=== PATIENT | female | born 1985 | race African-American/Black ===

== ENCOUNTER 2016-09-14 01:47 | Emergency (ER) | payer OTHER ==
[2016-09-14 05:15] VITALS: BP 123/89; PULSE 86; TEMP 98.3; BMI 18.4
[2016-09-14 05:31] LABS: URINE APPEARANCE SLCLOUDY; URINE BILIRUBIN NEGATIVE (NEGATIVE); URINE COLOR YELLOW; URINE GLUCOSE (UA) NEGATIVE (NEGATIVE); URINE KETONE NEGATIVE (NEGATIVE); URINE NITRITE POSITIVE (NEGATIVE); URINE PROTEIN NEGATIVE (NEGATIVE); URINE UROBILINOGEN NEGATIVE E.U./dl (0.2-1.0)
[2016-09-14 05:37] LABS: URINE BLOOD 3+ (NEGATIVE); URINE LEUK ESTERASE TRACE (NEGATIVE)
[2016-09-14 05:38] LABS: URINE BACTERIA RARE /hpf (NONE SEEN); URINE MUCUS RARE; URINE RBC 1 /hpf (0-3); URINE WBC 12 /hpf (3-5)
--- NOTE | 2016-09-14 06:43 | PDOC ---
History of Present Illness - General Chief Complaint: Vaginal Bleeding Stated Complaint: 12 WEEKS PRG, VAGINAL BLEEDING Time Seen by Provider: 09/14/16 02:07 History Source: Patient Exam Limitations: No Limitations - History of Present Illness Travel History: No Initial Comments: 09/14/16 06:39 I was asked by the charge nurse to see the patient since patient wanted to be seen secondary to urinary frequency and blood-tinged urine. Patient states is currently 12 weeks and had an ultrasound done last week which was normal and is to for her for first trimester screening later this week. Patient denies fever, chills, abdominal pain, abdominal distention, or diarrhea. Timing/Duration: reports: intermittent Quality: reports: mild Aggravating Factors: improves with: Voiding Alleviating Factors: improves with: None Past History - Past Medical History Allergies/Adverse Reactions: Allergies Allergy/AdvReac Type Severity Reaction Status Date / Time No Known Allergies Allergy Verified 09/14/16 05:16 Home Medications: Ambulatory Orders Amoxicillin - [Amoxicillin 500mg Capsule -] 500 mg PO TID 09/14/16 Ibuprofen [Motrin -] 400 mg PO QID PRN 09/14/16 Pnv#71/Iron/Folic Acid/Dha [Prena1 Annabelle Softgel] 1 each PO DAILY 09/14/16 - Psycho/Social/Smoking Cessation Hx Suicidal Ideation: No Smoking History: Unknown if ever smoked Patient Lives Alone: No Lives with/in: spouse/SO Review of Systems - Review of Systems Able to Perform ROS?: Yes Constitutional: No: Symptoms Reported ABD/GI: No: Symptoms Reported : Yes: Frequency, Hematuria Musculoskeletal: No: Symptoms Reported Integumentary: No: Symptoms Reported Neurological: No: Symptoms reported *Physical Exam - Vital Signs Last Vital Signs Temp Pulse Resp BP Pulse Ox 98.3 F 86 16 123/89 100 09/14/16 01:48 09/14/16 01:48 09/14/16 01:48 09/14/16 01:48 09/14/16 01:48 - Physical Exam General Appearance: Yes: Nourished, Appropriately Dressed. No: Apparent Distress Respiratory/Chest: positive: Lungs Clear, Normal Breath Sounds. negative: Respiratory Distress, Accessory Muscle Use Cardiovascular: positive: Regular Rhythm, Regular Rate. negative: Murmur Gastrointestinal/Abdominal: positive: Normal Bowel Sounds, Soft. negative: Tenderness Musculoskeletal: negative: CVA Tenderness Extremity: positive: Normal Capillary Refill. negative: Pedal Edema Integumentary: positive: Normal Color, Warm, Moist Neurologic: positive: Motor Strength 5/5 (ambulatory) ED Treatment Course - ADDITIONAL ORDERS Additional order review: Laboratory Results 09/14/16 05:26 Urine Color Yellow Urine Appearance Slcloudy Urine pH 5.0 Urine Protein Negative Urine Glucose (UA) Negative Urine Ketones Negative Urine Blood 3+ H Urine Nitrite Positive Urine Bilirubin Negative Urine Urobilinogen Negative Ur Leukocyte Esterase Trace H Urine RBC 1 Urine WBC 12 Ur Epithelial Cells Rare Urine Bacteria Rare Urine Mucus Rare Medical Decision Making - Medical Decision Making 09/14/16 06:42 The patient currently 12 weeks complaining of urinary frequency and blood-tinged urine. Patient on exam had no tenderness was ordered for urine analysis prior to my arrival. Urine does show UTI. Patient was added for a urine culture and will be switched to Macrobid. *DC/Admit/Observation/Transfer Diagnosis at time of Disposition: Urinary tract infection Qualifiers: Urinary tract infection type: acute cystitis Hematuria presence: with hematuria Qualified Code(s): N30.01 - Acute cystitis with hematuria - Discharge Dispostion Disposition: HOME Condition at time of disposition: Good - Referrals Referrals: Joanne Ureña [Primary Care Provider] - - Patient Instructions Printed Discharge Instructions: DI for Urinary Tract Infection (UTI) Additional Instructions: Please take antibiotics as prescribed until completed. 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 - Post Discharge Activity
[2016-09-14] MEDS ORDERED: NITROFURANTOIN MACROCRYSTAL 50 MG CAPSULE (FP) ONE (06:46)
[2016-09-14] MEDS ORDERED: NITROFURANTOIN MACROCRYSTAL 50 MG CAPSULE (FP) PO ONE (06:55)
== END 2016-09-14 06:59 | disposition home or self-care (01) ==
LOC: JER 01:47
DX: O26.891 Other specified pregnancy related conditions, first trimester (principal); N30.01 Acute cystitis with hematuria
CPT/HCPCS: 81003; 81015; 87086; 87186; 99281-25

== ENCOUNTER 2016-10-18 00:30 | Inpatient (IN) | payer OTHER ==
[2016-10-18] MEDS ORDERED: ACETAMINOPHEN 1000 MG/100 ML VIAL (NON FORMULARY) IVPB ONE (01:19)
--- NOTE | 2016-10-18 01:19 | PDOC ---
History of Present Illness - General History Source: Patient Exam Limitations: No Limitations - History of Present Illness Initial Comments: 10/18/16 01:38 The patient is a 31 year old female, A1, 16 -weeks , with a surgical history of three C sections, who presents to the ER with gradually worsening vaginal bleeding for one month and abdominal pain for several days. Patient states she has had vaginal bleeding since August 28, 2016. Since then, she had two sonograms, both reported that the bleeding was not near the baby. Patient states her last checkup with the UNION ORGANISER was three weeks ago, reporting that the baby was normal then. Patient reports recently visiting [facility] and was told she has a blood clot over the cervix. She says she recently has noticed clots and tissue in the vaginal blood. Patient reports that she has been wearing her sons diaper for the past three days due to the heavy vaginal bleeding. She reports having associated abdominal pain and states the pain is pushing down on her. On interview, patient had one episode of vomiting. Denies bleeding disorders Denies diarrhea Denies fever, chills, cough Denies dysuria, hematuria, frequency UNION ORGANISER: Dr. Kee <Val Thompson - Last Filed: 10/22/16 11:29> - General History Source: Patient Exam Limitations: No Limitations <Geri Reyes - Last Filed: 10/23/16 09:42> - General Chief Complaint: Vaginal Bleeding Stated Complaint: 16 WKS PREG, VAGINAL BLEEDING Time Seen by Provider: 10/18/16 00:38 Past History <Val Thompson - Last Filed: 10/22/16 11:29> - Psycho/Social/Smoking Cessation Hx Suicidal Ideation: No Smoking History: Never smoked Have you smoked in the past 12 months: No Information on smoking cessation initiated: No Hx Alcohol Use: No Drug/Substance Use Hx: No <Geri Reyes - Last Filed: 10/23/16 09:42> - Past Medical History Allergies/Adverse Reactions: Allergies Allergy/AdvReac Type Severity Reaction Status Date / Time No Known Allergies Allergy Verified 10/18/16 00:38 Home Medications: Ambulatory Orders Nitrofurantoin Monohyd/M-Cryst [Macrobid -] 100 mg PO BID #14 capsule 09/14/16 Pnv#71/Iron/Folic Acid/Dha [Prena1 Annabelle Softgel] 1 each PO DAILY 09/14/16 Acetaminophen [Tylenol .Regular Strength -] 325 mg PO Q4H PRN #0 tablet Ferrous Sulfate [Feosol] 325 mg PO BIDWM #60 tab 10/20/16 Ibuprofen [Motrin -] 200 mg PO Q6H PRN #0 tablet 10/20/16 Ibuprofen [Motrin -] 600 mg PO Q4H PRN #60 tablet 10/20/16 Vitamins (Sjr) - 1 tab PO DAILY #30 tablet 10/20/16 Review of Systems - Review of Systems Able to Perform ROS?: Yes Comments:: 10/18/16 01:38 GENERAL/CONSTITUTIONAL: No: fever, chills, weakness, loss of appetite. HEAD, EYES, EARS, NOSE AND THROAT: No: change in vision, ear pain, discharge, sore throat, throat swelling. CARDIOVASCULAR: No: chest pain, lightheadedness, palpitations, syncope RESPIRATORY: No: cough, shortness of breath, wheezing, hemoptysis, stridor. GASTROINTESTINAL: (+) nausea, vomiting, abdominal pain. No: diarrhea, rectal bleeding, constipation. VAGINAL: (+) Vaginal bleeding GENITOURINARY: No: dysuria, hematuria, frequency, urgency, flank pain. MUSCULOSKELETAL: No: back pain, neck pain, joint pain, muscle swelling or pain SKIN AND BREASTS: No: lesions, pallor, rash or easy bruising. NEUROLOGIC: No: headache, vertigo, paresthesias, weakness ENDOCRINE: No: unexplained weight gain or loss HEMATOLOGIC/LYMPHATIC: No: anemia, easy bleeding, swelling nodes <Uts,Val - Last Filed: 10/22/16 11:29> *Physical Exam - Vital Signs Last Vital Signs Temp Pulse Resp BP Pulse Ox 97.6 F 108 H 22 90/52 99 10/18/16 00:38 10/18/16 00:38 10/18/16 00:38 10/18/16 00:38 10/18/16 00:38 - Physical Exam Comments: 10/18/16 03:08 GENERAL: The patient is in no acute distress. HEAD: Normal with no signs of trauma. EYES: PERRLA, EOMI, sclera anicteric, conjunctiva clear. ENT: Ears normal, nares patent, oropharynx clear without exudates. Moist mucous membranes. NECK: Normal range of motion, supple without lymphadenopathy, JVD, or masses. LUNGS: Breath sounds equal, clear to auscultation bilaterally. No wheezes, and no crackles. HEART:Regular rate and rhythm, normal S1 and S2 without murmur, rub or gallop. ABDOMEN: Gravid abdomen. Tender to lower abdominal area. Soft, normoactive bowel sounds. No guarding, no rebound. EXTREMITIES: Normal range of motion, no edema. No clubbing or cyanosis. No erythema, or tenderness. NEUROLOGICAL: Cranial nerves II through XII grossly intact. Normal speech. No focal neurological deficits. MUSCULOSKELETAL: Back non-tender to palpation, no CVA tenderness SKIN: Warm, Dry, normal turgor, no rashes or lesions noted. <Val Thompson - Last Filed: 10/22/16 11:29> - Vital Signs Last Vital Signs Temp Pulse Resp BP Pulse Ox 97.6 F 108 H 22 90/52 99 10/18/16 00:38 10/18/16 00:38 10/18/16 00:38 10/18/16 00:38 10/18/16 00:38 <Geri Reyes - Last Filed: 10/23/16 09:42> ED Treatment Course - LABORATORY CBC & Chemistry Diagram: 10/20/16 08:35 10/18/16 02:34 - RADIOLOGY Radiograph Interpretation: 10/18/16 04:23 Abdominal US impression reported by Dr. Dwain Deleon M.D.: Live intrauterine gestation of approximately 16 weeks 5 days. Anterior placenta, the inferior tip is not clearly visualized. Heterogeneous material covering the internal cervical os may represent placental hemorrhage or blood clot. - Medications Given in the ED: ED Medications Discontinued Medications Generic Name Dose Route Start Last Admin Trade Name Freq PRN Reason Stop Dose Admin Acetaminophen 1,000 mg 10/18/16 01:19 10/18/16 01:25 Ofirmev Injection - IVPB 10/18/16 01:20 1,000 mg ONCE ONE Administration <JayVal - Last Filed: 10/22/16 11:29> - LABORATORY CBC & Chemistry Diagram: 10/20/16 08:35 10/18/16 02:34 <Geri Reyes - Last Filed: 10/23/16 09:42> Medical Decision Making - Critical Care Time Total Critical Care Time (minutes): 60 Critical Care Statement: The care of this patient involved high complexity decision making to prevent further life threatening deterioration of the patient 's condition and/or to evalute & treat vital organ system(s) failure or risk of failure. - Medical Decision Making 10/18/16 01:18 A portion of this note was documented by scribe services under my direction. I have reviewed the details of the note, within reason, and agree with the documentation with the following case summary and management plan written by me. Nursing documentation reviewed and incorporated into medical decision making 31 yo Pt is approximately 17 week presents to the ER with severe lower abdominal pain and vaginal bleeding Pt has had spotting for the past 6 weeks Bleeding worsened over the past 3-4 days she is having intermittent severe cramping Pt states she is bleeding so heavily that she is having to wear her son's diapers 10/18/16 02:42 Laboratory Tests 10/18/16 02:34 WBC 18.6 H Hgb 6.6 L* Hct 20.3 L Plt Count 236 Neutrophils % 91.8 H Lymphocytes % 4.8 L NS saline initiated Pelvis examination: unable to insert speculum Unable to do bimanual (+) blood noted at introitus there is pressure in vaginal area that prevents complete examination Abd U/S: 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 Findings: The uterus is anteverted and gravid. heart rate is 132 beats per minute. measurements correspond to gestational age of 16 weeks 5 days. The amniotic fluid appears to be within normal limits. The placenta is anterior and low-lying. The tip is not clearly visualize relative to the internal os. Heterogeneous echogenic and hypoechoic material is seen inferiorly covering the internal os and may represent clot. The ovaries are not visualized. Live intrauterine gestation of approximately 16 weeks 5 days. Anterior placenta, the inferior tip is not clearly visualized. Heterogeneous material covering the internal cervical os may represent placental hemorrhage or blood clot. 10/18/16 02:45 10/18/16 03:[address] Torres States this is patient's pain is likely due to the placenta enlarging and pulling at the uterus He states pt should be given Morphine, Dilaudid or percocet for pain He states pt can be admitted for re assessment given she will need to be transfused 10/18/16 04:12 Pt resting comfortably vomited on the floor Was given Zofran by nurse Michelle Transferred to L&D <Geri Reyes - Last Filed: 10/23/16 09:42> *DC/Admit/Observation/Transfer - Attestations Scribe Attestion: 10/18/16 01:41 Documentation prepared by Val Thompson, acting as medical interpreter for Geri Reyes MD. <Val Thompson - Last Filed: 10/22/16 11:29> - Discharge Dispostion Admit: Yes <Geri Reyes - Last Filed: 10/23/16 09:42> Diagnosis at time of Disposition: Anemia Qualifiers: Anemia type: other cause Other causes of anemia: other cause, not classified Qualified Code(s): D64.89 - Other specified anemias Vaginal bleeding in Qualifiers: Trimester: second trimester Qualified Code(s): O46.92 - Antepartum hemorrhage, unspecified, second trimester - Discharge Dispostion Disposition: HOME Condition at time of disposition: Stable - Prescriptions - Referrals
[2016-10-18] MEDS ORDERED: ACETAMINOPHEN INJECTION 100 ML IVPB ONE (01:23)
[2016-10-18 02:40] LABS: BASOPHIL 0.1 % (0-2.0); EOSINOPHIL 0.1 % (0-4.5); MCH 30.9 pg (25.7-33.7); MCHC 32.7 g/dl (32.0-36.0); MEAN CELL VOLUME 94.3 fl (80-96); MEAN PLT VOLUME 6.4 fl (7.5-11.1); NEUTROPHILS 91.8 % (42.8-82.8); PLATELET COUNT 236 K/MM3 (134-434); RDW 14.5 % (11.6-15.6); WHITE BLOOD COUNT 18.6 K/mm3 (4.0-10.0)
[2016-10-18] MEDS ORDERED: SODIUM CHLORIDE 1,000 ML IV STA (02:42)
[2016-10-18 03:14] LABS: ANION GAP 9 (8-16); BILIRUBIN,TOTAL 0.2 mg/dL (0.2-1.0); CALCIUM 7.9 mg/dL (8.5-10.1); CO2 23 mmol/L (21-32); CREATININE 0.6 mg/dL (0.55-1.02); GLUCOSE,RANDOM 101 mg/dL (74-106); SGOT/AST 16 U/L (15-37); SGPT/ALT 12 U/L (12-78); TOT PROT 6.1 g/dl (6.4-8.2)
[2016-10-18 03:30] LABS: ALK PHOS 69 U/L (45-117)
[2016-10-18] MEDS ORDERED: morphine CARPU-JECT 4 MG/1 ML DISP.SYRIN IVPUSH ONE (03:40)
[2016-10-18] MEDS ORDERED: morphine CARPU-JECT 4 MG/1 ML DISP.SYRIN ONE (03:42)
[2016-10-18] MEDS ORDERED: ONDANSETRON 4 MG/2 ML VIAL ONE (03:44)
[2016-10-18] MEDS ORDERED: ONDANSETRON 4 MG/2 ML VIAL IVPUSH ONE ×2 (04:12→04:18)
[2016-10-18 05:15] VITALS: BMI 18.8
--- NOTE | 2016-10-18 06:13 | HP ---
Admitting History and Physical - Admission Chief Complaint: vaginal bleeding History of Present Illness: 31 y/o at approx 16 weeks gestation comes with complaints of vaginal bleeding. She is a private pt of Dr. Gamez. Pt states she has been bleeding on and off since august and was told baby is fine. Today states had increase in bleeding and some cramps. Sono shows SLIUP with ? clot near cervix. CL not seen. Spoke with pt about viability. Will transfuse 3 units of PRBC. She states she has recieved iron transfusions in the past. History Source: Patient Limitations to Obtaining History: No Limitations - Past Medical History SITE ENGINEER: No: Alzheimer's, CVA, Dementia, Migraine, Multiple Sclerosis, Peripheral Neuropathy, Parkinson's, Seizure, Syncope, TIA, Vertigo, Other Cardiovascular: No: AFIB, Aneurysm, Aortic Insufficiency, Aortic Stenosis, CAD, CHF, Deep Vein Thrombosis, HTN, Hyperlipdemia, AK, Mitral Insufficiency, Mitral Stenosis, Murmur, Pulmonary Hypertension, Other Pulmonary: No: Asthma, Bronchitis, Cancer, COPD, O2 Dependent, Pneumonia, Previously Intubated, Pulmonary Embolus, Pulmonary Fibrosis, Sleep Apnea, Other Gastrointestinal: No: Ascites, Cancer, Constipation, Crohn's Disease, Diverticulitis, Diverticulosis, Esophageal Varices, Gastritis, GERD, GI Bleed, Hemorrhoids, Hiatal Hernia, Inflamatory Bowel Disease, Irritable Bowel Disease, Pancreatitis, Peptic Ulcer Disease, Ulcerative Colitis, Other Hepatobiliary: No: Cirrhosis, Cholelithiasis, Cholecystitis, Choledocholithiasis , Hepatitis A, Hepatitis B, Hepatitis C, Other Renal/: No: Renal Failure, Renal Inusuff, BPH, Cancer, Hematuria, Hemodialysis , Neurogenic Bladder, Renal Calculi, UTI, Other Reproductive: No: Ectopic , Endometriosis, Fibroids, PID, Polycystic Ovary Syndrome, Postmenopausal, Other ...LMP: 06/29/16 ...: Yes (16 weeks by sono) Heme/Onc: Yes: Anemia Infectious Disease: No: AIDS, C-Diff, Herpes Zoster, HIV, MRSA, STD's, Tuberculosis, VREF, Other Musculoskeletal: No: Bursitis, Chronic low back pain, Hemiparesis, Hemiplegia, Osteoarthritis, Paraplegia, Other Rheumatology: No: Fibromyalgia, Gout, Lupus, Rheumatoid Arthritis, Sarcoidosis, Vasculitis, Other ENT: No: Allergic Rhinitis, Sinusitis, Other Endocrine: No: Lithonia's Disease, [place]'s Disease, Diabetes Insipidus, Diabetes Mellitus, Hyperparathyroidism, Hyperthyroidism, Hypothyroidism, Osteopenia, SIADH, Other Dermatology: No: Basal Cell, Cellulitis, Eczema, Melanoma, Psoriasis, Squamous Cell, Other - Past Surgical History Past Surgical History: No: None, AAA Repair, AICD, Amputation, Appendectomy, Arthrosocopy, AV Fistula/Graft, Bariatric Surgery, Breast Biopsy, Bypass, CABG, Carotid Endarterectomy, Cataract Removal, Cholecystectomy, Colectomy, Colonoscopy, Colostomy, Craniotomy, , Cystectomy, Hernia Repair, Hysterectomy, Ileal Conduit, Ileosotomy, Joint Replacement, Kidney Transplant, Laminectomy, Liver Transplant, Mastectomy, Nephrectomy, Oopherectomy, Orchiectomy, Permanent Pacemaker, Prostatectomy, Splenectomy, Stent, Thoracotomy , TURP, Tonsillectomy, Tubal Ligation, Upper Endoscopy, Valve Replacement, Vasectomy, Vein Stripping/Ligation - Smoking History Smoking history: Former smoker Have you smoked in the past 12 months: Yes Aproximately how many cigarettes per day: 4 If you are a former smoker, when did you quit?: june 2016 - Alcohol/Substance Use Hx Alcohol Use: No Home Medications - Allergies Allergies/Adverse Reactions: Allergies Allergy/AdvReac Type Severity Reaction Status Date / Time No Known Allergies Allergy Verified 10/18/16 00:38 - Home Medications Home Medications: Ambulatory Orders Nitrofurantoin Monohyd/M-Cryst [Macrobid -] 100 mg PO BID #14 capsule 09/14/16 Pnv#71/Iron/Folic Acid/Dha [Prena1 Annabelle Softgel] 1 each PO DAILY 09/14/16 Review of Systems - Review of Systems Constitutional: reports: No Symptoms Eyes: reports: No Symptoms HENT: reports: No Symptoms Neck: reports: No Symptoms Cardiovascular: reports: No Symptoms Respiratory: reports: No Symptoms Gastrointestinal: reports: No Symptoms Genitourinary: reports: No Symptoms Musculoskeletal: reports: No Symptoms Integumentary: reports: No Symptoms Neurological: reports: No Symptoms Endocrine: reports: No Symptoms Hematology/Lymphatic: reports: No Symptoms Physical Examination Vital Signs: Vital Signs Temperature 98.5 F 10/18/16 04:58 Pulse Rate 119 H 10/18/16 04:58 Respiratory Rate 20 10/18/16 04:58 Blood Pressure 118/84 10/18/16 04:58 O2 Sat by Pulse Oximetry (%) 100 10/18/16 04:01 Constitutional: Yes: Well Nourished Eyes: Yes: WNL HENT: Yes: WNL Neck: Yes: WNL Cardiovascular: Yes: WNL Respiratory: Yes: WNL Gastrointestinal: Yes: WNL ...Rectal Exam: Yes: WNL Renal/: Yes: WNL Extremities: Yes: WNL Neurological: Yes: WNL ...Motor Strength: WNL Assessment/Plan as abobe admit labs trasnfuse pain management
[2016-10-18] MEDS ORDERED: OXYCODONE/APAP 5/325MG COMBO TABLET PO PRN (06:14)
[2016-10-18] MEDS: ACETAMINOPHEN 325 MG TABLET (FP) PO PRN ×3 (06:32→20:27)
[2016-10-18] MEDS: oxyCODONE HCL 5 MG TABLET PO PRN ×4 (06:33→20:28)
[2016-10-18] MEDS ORDERED: IBUPROFEN 800 MG/8 ML IJ IVPB PRN (08:12)
--- NOTE | 2016-10-18 08:12 | PN ---
Progress Note (short form) - Note Progress Note: Came to evaluate patient after receiving a call from the nurses stating patient was feeling the fetus delivering. By the time I reached the room, the fetus and placenta had been delivered by the nurses. The patient had minimal lochia/vaginal bleeding after delivery. Inspection of the specimen revealed an in tact placenta/gestational sac and fetus. Mom admitted last night with anemia - already being transfused 3 units packed red cells. To continue transfusion. IV pitocin ordered. Pt to get another 5mg of oxycodone at this time for pain management. Dr. Nunez made aware (artificial insemination technician for clinic service today) for further management.
[2016-10-18] MEDS ORDERED: OXYTOCIN 20 UNITS in 0.9% NS 1,000 ML IV SCH (08:15)
[2016-10-18] MEDS ORDERED: LACTATED RINGERS SOLUTION 1,000 ML IV SCH (09:00)
[2016-10-18] MEDS ORDERED: D5W-LR W/ 20 UNITS OXYTOCIN 1,000 ML IV SCH (10:45)
[2016-10-18] MEDS ORDERED: METOCLOPRAMIDE HCL INJECTION 10 MG/2 ML VIAL IVPB ONE (11:30)
[2016-10-18 17:46] LABS: BASOPHIL 0.3 % (0-2.0); EOSINOPHIL 0.1 % (0-4.5); MCH 30.5 pg (25.7-33.7); MCHC 33.3 g/dl (32.0-36.0); MEAN CELL VOLUME 91.4 fl (80-96); MEAN PLT VOLUME 6.7 fl (7.5-11.1); NEUTROPHILS 90.4 % (42.8-82.8); PLATELET COUNT 231 K/MM3 (134-434); RDW 16.2 % (11.6-15.6); WHITE BLOOD COUNT 23.6 K/mm3 (4.0-10.0)
[2016-10-18] MEDS: CLINDAMYCIN 600MG PREMIX IVPB 50 ML IVPB SCH (21:59)
[2016-10-18] MEDS: AMPICILLIN - 100 ML IVPB SCH (22:00)
[2016-10-18 23:52] LABS: URINE APPEARANCE CLEAR; URINE BILIRUBIN NEGATIVE (NEGATIVE); URINE BLOOD 3+ (NEGATIVE); URINE COLOR LTYELLOW; URINE GLUCOSE (UA) NEGATIVE (NEGATIVE); URINE KETONE NEGATIVE (NEGATIVE); URINE LEUK ESTERASE NEGATIVE (NEGATIVE); URINE NITRITE NEGATIVE (NEGATIVE); URINE PROTEIN NEGATIVE (NEGATIVE); URINE UROBILINOGEN NEGATIVE E.U./dl (0.2-1.0)
[2016-10-18 23:53] LABS: URINE BACTERIA RARE /hpf (NONE SEEN); URINE MUCUS RARE; URINE RBC 1 /hpf (0-3); URINE WBC 4 /hpf (3-5)
[2016-10-19] MEDS: CLINDAMYCIN 600MG PREMIX IVPB 50 ML IVPB SCH ×3 (01:34→17:53)
[2016-10-19] MEDS: ACETAMINOPHEN 325 MG TABLET (FP) PO PRN ×4 (01:34→23:26)
[2016-10-19] MEDS: AMPICILLIN - 100 ML IVPB SCH ×3 (01:34→17:11)
[2016-10-19] MEDS: oxyCODONE HCL 5 MG TABLET PO PRN ×4 (01:35→23:27)
--- NOTE | 2016-10-19 09:50 | PN ---
Post Progress Note - Subjective Subjective: 31 yo status post delivery of a 16 weeks fetus, seen and evaluated. She's doing much better after 2 units of blood transfusion. Patient has some concerns; she was told that she had a clot in her pelvis. She's requesting another sonogram. Post Day: 1 Type of Delivery: Vital Signs: Vital Signs Temperature 97.4 F L 10/19/16 05:36 Pulse Rate 83 10/19/16 05:36 Respiratory Rate 18 10/19/16 05:36 Blood Pressure 117/88 10/19/16 05:36 O2 Sat by Pulse Oximetry (%) 100 10/18/16 04:01 Breast Exam: Yes: Soft Uterus: Yes: Fundus Firm Abdomen/GI: Yes: Abdomen soft, Tolerating PO Lochia: Yes: Rubra Lochia, amount: Small Extremities: Yes: Calves non-tender Perineum: Yes: Intact Activity: Ambulating - Labs Labs: CBC WBC 23.6 K/mm3 (4.0-10.0) H 10/18/16 17:15 RBC 2.93 M/mm3 (3.60-5.2) L D 10/18/16 17:15 Hgb 8.9 GM/dL (10.7-15.3) L D 10/18/16 17:15 Hct 26.8 % (32.4-45.2) L D 10/18/16 17:15 MCV 91.4 fl (80-96) 10/18/16 17:15 MCHC 33.3 g/dl (32.0-36.0) 10/18/16 17:15 RDW 16.2 % (11.6-15.6) H D 10/18/16 17:15 Plt Count 231 K/MM3 (134-434) 10/18/16 17:15 MPV 6.7 fl (7.5-11.1) L 10/18/16 17:15 Neutrophils % 90.4 % (42.8-82.8) H 10/18/16 17:15 Lymphocytes % 6.2 % (8-40) L D 10/18/16 17:15 Monocytes % 3.0 % (3.8-10.2) L 10/18/16 17:15 Eosinophils % 0.1 % (0-4.5) 10/18/16 17:15 Basophils % 0.3 % (0-2.0) 10/18/16 17:15 Problem List - Problems (1) Status post vaginal delivery Code(s): [id number] - Assessment/Plan Status post delivery of a 16-week fetus Severe anemia Status post blood transfusion Continue close observation
[2016-10-19 09:52] LABS: BASOPHIL 0.3 % (0-2.0); EOSINOPHIL 0.8 % (0-4.5); MCH 30.5 pg (25.7-33.7); MCHC 32.9 g/dl (32.0-36.0); MEAN CELL VOLUME 92.5 fl (80-96); MEAN PLT VOLUME 6.2 fl (7.5-11.1); PLATELET COUNT 207 K/MM3 (134-434); RDW 16.5 % (11.6-15.6); WHITE BLOOD COUNT 14.1 K/mm3 (4.0-10.0)
[2016-10-20] MEDS: AMPICILLIN - 100 ML IVPB SCH ×3 (01:07→17:57)
[2016-10-20] MEDS: CLINDAMYCIN 600MG PREMIX IVPB 50 ML IVPB SCH ×3 (01:07→17:57)
[2016-10-20] MEDS: oxyCODONE HCL 5 MG TABLET PO PRN (05:07)
[2016-10-20] MEDS: ACETAMINOPHEN 325 MG TABLET (FP) PO PRN (05:10)
--- NOTE | 2016-10-20 07:55 | PN ---
Progress Note (short form) - Note Progress Note: s/p 16 weeks sp ab complete, severe anemia pt is on Iv Ampicillin & Iv Clindamycin pt does not have any dizziness today in AM, she felt last night bleeding is minimal . . cramps still felt no urine symptoms Selected Entries 10/20/16 01:00 Temperature 98.3 F Pulse Rate 76 Blood Pressure 108/67 Microbiology 10/18/16 03:25 Urine - Urine Clean Catch Urine Culture - Final Lactobacillus Species Laboratory Tests 10/19/16 09:45 WBC 14.1 H D RBC 2.83 L Hgb 8.6 L Hct 26.2 L MCV 92.5 MCHC 32.9 Plt Count 207 Neutrophils % 84.0 H Lymphocytes % 11.1 D Eosinophils % 0.8 D Basophils % 0.3 o/e pallor pos ut not palpable p/a vaginal bleeding none Ass s/p sp complete ab, severe anemia s/p 2 pack cell transfusion .. Plan repeat cbc today check wbc count, iwill discharge if stable cbc po iron & vit
[2016-10-20] MEDS ORDERED: IBUPROFEN 600 MG TABLET (FP) PO PRN (07:56)
[2016-10-20] MEDS: FERROUS SO4 325 MG TABLET (FP) PO SCH ×2 (08:57→16:48)
[2016-10-20] MEDS: PRENATAL VITAMINS W/ FOLIC ACID TABLET (FP) PO SCH ×2 (08:58→09:32)
[2016-10-20 09:12] LABS: BASOPHIL 0.3 % (0-2.0); EOSINOPHIL 1.2 % (0-4.5); MCH 30.9 pg (25.7-33.7); MCHC 33.4 g/dl (32.0-36.0); MEAN CELL VOLUME 92.4 fl (80-96); NEUTROPHILS 69.6 % (42.8-82.8); PLATELET COUNT 235 K/MM3 (134-434); RDW 16.2 % (11.6-15.6); WHITE BLOOD COUNT 8.3 K/mm3 (4.0-10.0)
[2016-10-20 09:26] VITALS: BP 116/40; PULSE 69; TEMP 98.9
--- NOTE | 2016-10-21 16:27 | PATH ---
Surgical Pathology Report Patient Name: AGUILA MCKNIGHT [facility]. Rec. #: [id number] /Age/Gender: 1985 (Age: 31) / F Account: [id number] Location: [facility] OBS/SANDWICH HAND Taken: 10/19/2016 Received: 10/19/2016 Reported: 10/21/2016 Physicians: Deven Torres M.D. Specimen(s) Received PLACENTA, FETUS, POC Clinical History Vaginal bleeding, abdominal pain onset 08/28/16 G? P3 Spontaneous , vaginal delivery Final Diagnosis FETUS WITH PLACENTA, SPONTANEOUS : IMMATURE MALE FETUS, 106 GRAMS, WITH NO INTERNAL OR EXTERNAL CONGENITAL ABNORMALITIES IDENTIFIED. IMMATURE DISRUPTED PLACENTA, 115 GRAMS, WITH FOCAL INFARCT, 3 VESSEL UMBILICAL CORD, AND UNREMARKABLE PLACENTAL MEMBRANES. Electronically Signed Mikey Prasad M.D. Gross Description Received fresh, labeled with the patient's name and indicated on the requisition to be a fetus, placenta and products of conception, is a 106 g intact fetus measuring 11.8 cm from crown to rump and 16.0 cm from crown to heel. Each foot measures 2.1 cm from heel to toe. The anus and nares are patent. The eyelids are fused shut. The upper and lower extremities are normal and well proportioned, without any bony defects. Each hand and foot displays 5 digits. There are no axial defects and the lumbosacral spine is intact. The heart is normally positioned and no cardiac or lung abnormalities are noted. The abdominal organs also occupied are normal anatomic position. The kidneys and adrenals are well formed. The external genitalia are well formed and that of a male. The brain is person and gelatinous. The fetus is attached to a 115 g, 10.0 x 7.5 x 2.3 cm placenta. The umbilical cord measures 10 cm in length and averages 0.5 cm in diameter. No true knots or strictures are identified. Cut surface of the umbilical cord reveals 3 vessels. The cord inserts into the placenta eccentrically, 2 cm to the nearest margin. The membranes are person-brown and opaque. The membranes insert marginally. The surface is garrett blue with minimal fibrin deposition and appropriate caliber vessels. The maternal surface is person red with focal attached blood clot and multifocal defects. Sectioning reveals person red, spongy parenchyma. Separately received within the same container is a 13.0 x 9.0 x 3.0 cm red-brown blood clot. Corporate Health Consultant sections are submitted in 9 cassettes as follows: 1-thymus, heart, lungs; 2-liver, spleen, stomach, intestines; 3-kidneys, adrenals, testes; 4-brain; 5-membrane rolls and umbilical cord; 0-8-krsb-thickness sections of placenta; 9-blood clot. 10/19/201610/19/2016
== END 2016-10-20 18:50 | disposition home or self-care (01) | DRG 564 ==
LOC: JER 00:30 → J3W 03:48
PROVIDERS: ADMIT Obstetrics & Gynecology; ATTEND Obstetrics & Gynecology
PROC: 30233N1 Transfusion of Nonautologous Red Blood Cells into Peripheral Vein, Percutaneous Approach (ICD-10-PCS; principal; 2016-10-18)
DX: O03.9 Complete or unspecified spontaneous abortion without complication (principal); D50.0 Iron deficiency anemia secondary to blood loss (chronic); O46.92 Antepartum hemorrhage, unspecified, second trimester; Z3A.16 16 weeks gestation of pregnancy
CPT/HCPCS: 36415; 36430; 76801-TC; 76830-TC; 80053; 81003; 81015; 84702; 85025; 86922; 87086; 88309-TC; 99282-25; P9058

== ENCOUNTER 2018-03-27 16:09 | Emergency (ER) | payer OTHER ==
--- NOTE | 2018-03-27 16:27 | PDOC ---
Rapid Medical Evaluation Chief Complaint: Head/Neck problem Time Seen by Provider: 03/27/18 16:21 Medical Evaluation: Allergies Allergy/AdvReac Type Severity Reaction Status Date / Time No Known Allergies Allergy Verified 03/27/18 16:21 03/27/18 16:22 I have performed a brief in-person evaluation of this patient. The patient presents with a chief complaint of:.slipped in bathtub and struck occiput last PM, No LOC. Pertinent physical exam findings: small hematoma - no crepitus or stepoff. minimal pain . no drianage from eyes or nose I have ordered the following: nothing The patient will proceed to the ED for further evaluation. Discharge Disposition - Diagnosis Head injury due to trauma Qualifiers: Encounter type: initial encounter Qualified Code(s): S09.90XA - Unspecified injury of head, initial encounter - Referrals Referrals: Margarita Bynum [Primary Care Provider] - - Patient Instructions - Post Discharge Activity
--- NOTE | 2018-03-27 16:39 | PDOC ---
Rapid Medical Evaluation Chief Complaint: Head/Neck problem Time Seen by Provider: 03/27/18 16:21 Medical Evaluation: Allergies Allergy/AdvReac Type Severity Reaction Status Date / Time No Known Allergies Allergy Verified 03/27/18 16:21 03/27/18 16:37 I have performed a brief in-person evaluation of this patient. The patient presents with a chief complaint of:toothache x 1 week to left lower incisor. + 23 weeks. - has note from [facility] Dr Ponce for Amox. Pertinent physical exam findings: mild swelling/ tenderness to area. I have ordered the following: nothing The patient will proceed to the ED for further evaluation. 03/27/18 16:39 Discharge Disposition - Diagnosis Head injury due to trauma Qualifiers: Encounter type: initial encounter Qualified Code(s): S09.90XA - Unspecified injury of head, initial encounter - Referrals Referrals: Margarita Bynum [Primary Care Provider] - - Patient Instructions - Post Discharge Activity
[2018-03-27 16:46] VITALS: BP 111/78; PULSE 68; TEMP 97.8; BMI 23.3
--- NOTE | 2018-03-27 17:05 | PDOC ---
History of Present Illness - General Chief Complaint: Head/Neck problem Stated Complaint: TOOTHPAIN Time Seen by Provider: 03/27/18 16:21 - History of Present Illness Initial Comments: 03/27/18 17:03 32-year-old female presents for evaluation of one week worth of toothache Past History - Past Medical History Allergies/Adverse Reactions: Allergies Allergy/AdvReac Type Severity Reaction Status Date / Time No Known Allergies Allergy Verified 03/27/18 16:21 Home Medications: Ambulatory Orders Amoxicillin - [Amoxicillin 875mg Tablet -] 875 mg PO BID #20 tablet 03/27/18 Anemia: Yes Asthma: No Cancer: No Cardiac Disorders: No CVA: No COPD: No CHF: No Dementia: No Diabetes: No GI Disorders: No Disorders: No HTN: No Hypercholesterolemia: No Liver Disease: No Seizures: No Thyroid Disease: No - Surgical History Abdominal Surgery: No Appendectomy: No Cardiac Surgery: No Cholecystectomy: No Lung Surgery: No Neurologic Surgery: No Orthopedic Surgery: No - Suicide/Smoking/Psychosocial Hx Smoking History: Never smoked Have you smoked in the past 12 months: No Number of Cigarettes Smoked Daily: 4 If you are a former smoker, when did you quit?: june 2016 Cigars Per Day: 0 Hx Alcohol Use: No Drug/Substance Use Hx: No Hx Substance Use Treatment: No Review of Systems - Review of Systems HEENTM: Yes: Dental Problems *Physical Exam - Vital Signs Last Vital Signs Temp Pulse Resp BP Pulse Ox 97.8 F 68 18 111/78 99 03/27/18 16:38 03/27/18 16:38 03/27/18 16:38 03/27/18 16:38 03/27/18 16:38 - Physical Exam Comments: 03/27/18 17:03 HEAD: NC/AT EYES: Conjuntiva clear Ears: Canals and TM's normal NOSE: No d/c THROAT: Moist mucous membrances, oral pharanx clear, uvula midline; poor dentition left lower molar has a large cavity NECK: Supple without adenopathy NEUROLOGIC: No gross sensory or motor deficits, NVID SKIN: Normal color and temperature no lesions or rashes Moderate Sedation - Procedure Monitoring Vital Signs: Procedure Monitoring Vital Signs Temperature 97.8 F 03/27/18 16:38 Pulse Rate 68 03/27/18 16:38 Respiratory Rate 18 03/27/18 16:38 Blood Pressure 111/78 03/27/18 16:38 O2 Sat by Pulse Oximetry (%) 99 03/27/18 16:38 *DC/Admit/Observation/Transfer Diagnosis at time of Disposition: Toothache Diagnosis at time of Disposition: (Ruled Out): Head injury due to trauma - Discharge Dispostion Disposition: HOME Condition at time of disposition: Stable Decision to Admit order: No - Prescriptions Prescriptions: Amoxicillin - [Amoxicillin 875mg Tablet -] 875 mg PO BID #20 tablet - Referrals Referrals: Margarita Bynum [Primary Care Provider] - [facility] [Outside] - Patient Instructions Printed Discharge Instructions: Tooth Decay, DI for Tooth Decay Additional Instructions: Return to the emergency room should symptoms worsen or go unresolved. Please take the antibiotics as directed and follow-up with urgent care dental immediately - Post Discharge Activity
== END 2018-03-27 17:06 | disposition home or self-care (01) ==
LOC: JERFT 16:09 → JER 16:09 → JERFT 17:06
DX: O26.892 Other specified pregnancy related conditions, second trimester (principal); Z3A.23 23 weeks gestation of pregnancy; K08.89 Other specified disorders of teeth and supporting structures
CPT/HCPCS: 99281-25

== ENCOUNTER 2021-04-16 09:27 | Emergency (ER) | payer OTHER ==
[2021-04-16 10:04] VITALS: BP 117/78; PULSE 19; TEMP 98.9
== END 2021-04-16 11:08 | disposition home or self-care (01) ==
LOC: JER 09:27
DX: S63.635A Sprain of interphalangeal joint of left ring finger, initial encounter (principal); W22.8XXA Striking against or struck by other objects, initial encounter
CPT/HCPCS: 73140-TC-LT-FY; 99283-25